=== PATIENT | female | born 1970 | race Caucasian/White ===

== ENCOUNTER 2018-11-03 17:15 | Emergency (ER) | payer OTHER, MEDICAID ==
[~2018-11-03] VITALS: Ht 165.1 cm; Wt 90.7 kg
[~2018-11-03 17:15] MED LIST: ABILIFY 5 MG TAB5 MG PO; ACETAMINOPHEN-1 EAC1 PO; ALBUTEROL2.5 MG/0.5 INH; ALBUTEROL2.5 MG/31 INH; ALL DAY ALLERGY10 M3 PO; AMITIZA 24 MCG24 MC1 PO; ASCOMP WITH CO1 EACH PO; AZITHROMYCIN 2250 MG PO; BACTRIM DS TAB1 EACH PO; BACTROBAN CREAM30 G1 TOP; BENADRYL25 MG PO; CALCIUM 600 +1 EAC1 PO; CIPROFLOXIN HC2.5 M1 OPHTHALMIC; CLEOCIN HCL150 MG PO; CLONAZEPAM 1 MG1 M1 PO; CPAP MISCELL; CYMBALTA30 MG PO; DEXILANT30 MG PO; FIORINAL 50-321 EACH PO; FISH OIL 1,001000 M2 PO; GLIPIZIDE 10 MG10 MG PO; GLIPIZIDE XL5 MG PO; HYDROCODONE-AP1 EAC6 PO; IBUPROFEN 600600 M1 PO; LAMISIL125 ML TP; LIDODERM 5%1 PATC1 TRANSDERM; LIPITOR10 MG PO; LOTREL 5-20 MG1 EACH PO; LUNESTA3 MG PO; MACROBID 100 M100 M1 PO; MEDROLDOSEPACK PO; METFORMIN HCL500 MG PO; MIGRANOW KIT50 MG MC; MIRALAX17 GM PO; MUCINEX TA600 MG/TA2 PO; NASONEX17 GM NASAL; NEURONTIN 300300 M1 PO; NEURONTIN 400400 M1 PO; NEURONTIN600 MG PO; NORCO 5-325 TA1 EACH PO; NORVASC10 MG PO; ONDANSETRON HCL4 M2 PO; PATADAY2.5 ML OP; PERCOCET 10-321 EAC1 PO; PERCOCET 10-321 EACH PO; PRINIVIL5 MG; PROAIR HFA8.5 GM; PROAIR HFA8.5 GM INH; REQUIP XL8 MG PO; REQUIP3 MG PO; ROBAXIN 750 MG750 M1 PO; ROBAXIN500 MG PO; SINGULAIR 10 MG10 M1 PO; SYMBICORT160 MCG/4. INH; TOBRAMYCIN SULFA5 M1 OP; TRAMADOL 50 MG50 MG PO; TRIAMCINOLONE A80 G2 TOP; VENTOLIN HFA 1818 GM INH; VICODIN 5-5001 EACH PO; ZANAFLEX4 M1 PO; ZYRTEC10 M5 PO
[2018-11-03] MEDS ORDERED: PREDNISONE 20 M20 MG PO (17:44)
[2018-11-03] MEDS ORDERED: TRIAMCINOLONE A80 G2 TOP (17:44)
[2018-11-03] MEDS ORDERED: HYDROXYZINE HCL25 M1 PO (17:44)
[2018-11-03 18:02] VITALS: BP 129/85
== END 2018-11-03 18:02 | disposition home or self-care (01) ==
LOC: M.ERS 17:15
DX: L23.7 Allergic contact dermatitis due to plants, except food (principal); I10 Essential (primary) hypertension; M79.7 Fibromyalgia; E11.40 Type 2 diabetes mellitus with diabetic neuropathy, unspecified; K21.9 Gastro-esophageal reflux disease without esophagitis; G43.909 Migraine, unspecified, not intractable, without status migrainosus; G47.00 Insomnia, unspecified; G25.81 Restless legs syndrome; E66.9 Obesity, unspecified; Z98.890 Other specified postprocedural states; Z90.49 Acquired absence of other specified parts of digestive tract; Z90.710 Acquired absence of both cervix and uterus; Z88.0 Allergy status to penicillin; Z90.89 Acquired absence of other organs; Z68.33 Body mass index [BMI] 33.0-33.9, adult

== ENCOUNTER 2020-01-01 14:25 | Emergency (ER) | payer OTHER, MEDICAID ==
[~2020-01-01] VITALS: Ht 162.6 cm; Wt 104.3 kg
[~2020-01-01 14:25] MED LIST changes: +HYDROXYZINE HCL25 M1 PO; +PREDNISONE 20 M20 MG PO
[2020-01-01] MEDS ORDERED: VOLTAREN GEL 1100 G1 TOP (14:30)
[2020-01-01 14:54] LABS: ABSOLUTE BASOPHILS 0.1 thou/uL (0.0-0.2); ABSOLUTE EOSINOPHILS 0.1 thou/uL (0.0-0.7); ABSOLUTE LYMPHOCYTES 2.3 thou/uL (0.8-5.3); ABSOLUTE MONOCYTES 0.6 thou/uL (0.0-1.2); ABSOLUTE NEUTROPHILS 4.5 thou/uL (1.6-8.1); BASOPHILS 1.2 %; EOSINOPHILS 1.7 %; LYMPHOCYTES 29.4 %; MCH 29.5 pg (26.0-34.0); MCHC 34.1 g/dL (28.0-37.0); MCV 86.5 fL (80.0-100.0); MONOCYTES 8.5 %; MPV 7.3 fl. (7.2-11.1); NUCLEATED RBCS 0 /100WBC; PLATELET COUNT* 257 thou/uL (150-400); POLYS 59.2 %; RDW-CV 13.2 % (10.5-14.5); WBC 7.7 thou/uL (4.0-11.0)
[2020-01-01 15:02] LABS: CREATININE 0.9 mg/dL (0.6-1.3); POTASSIUM 3.5 mmol/L (3.5-5.1)
[2020-01-01 15:03] LABS: APTT 27.3 Seconds (25.0-31.3); INR 0.9; PROTIME 9.5 Seconds (9.20-11.50)
[2020-01-01 15:07] LABS: TOTAL BILIRUBIN 0.2 mg/dL (<0.1-1.0); TOTAL PROTEIN 6.5 g/dL (6.4-8.2)
[2020-01-01 15:37] VITALS: BP 143/95
--- NOTE | 2020-01-03 14:33 | EKG ---
[place] [address] ELECTROCARDIOGRAM REPORT Name: HARRISKELLIE R Room: [facility]#: [id number] Admission: 01/01/20 Attend Phys: Discharge: 01/01/20 Date of : 68 Date of Service: 01/01/20 1437 Report #: [id number] THIS REPORT FOR: //name// [facility] ED Test Date: 2020-01-01 Test Time: 14:37:13 Pat Name: KELLIE IGLESIAS Department: Room: Gender: Wood Miller: : 1970 Requested By: Cristhian Rajput Order Number: [id number] MD: Aaron Tenorio Measurements Intervals [place] Rate: 88 P: 53 [place]: 192 QRS: 9 QRSD: 114 T: 15 QT: 369 QTc: 447 Interpretive Statements Sinus rhythm Probable left ventricular hypertrophy Compared to ECG 03/30/2017 11:10:47 No significant changes Electronically Signed On 01-03-2020 14:32:49 CDT by Aaron Tenorio [email or web address] <ELECTRONICALLY SIGNED> By: Aaron Tenorio MD, [facility] 01/03/20 1432 1437 143 Aaron Tenorio MD, [facility] /EPI
== END 2020-01-01 15:37 | disposition home or self-care (01) ==
LOC: M.ERS 14:25
PROVIDERS: Family Medicine
DX: E86.0 Dehydration (principal); R55 Syncope and collapse; I10 Essential (primary) hypertension; E11.9 Type 2 diabetes mellitus without complications; E66.9 Obesity, unspecified; K21.9 Gastro-esophageal reflux disease without esophagitis; G43.909 Migraine, unspecified, not intractable, without status migrainosus; G25.81 Restless legs syndrome; M79.7 Fibromyalgia; Z68.39 Body mass index [BMI] 39.0-39.9, adult; Z98.890 Other specified postprocedural states; Z90.49 Acquired absence of other specified parts of digestive tract; Z90.710 Acquired absence of both cervix and uterus; Z88.0 Allergy status to penicillin

== ENCOUNTER 2020-07-31 01:13 | Emergency (ER) | payer OTHER, MEDICAID ==
[~2020-07-31] VITALS: Ht 162.6 cm; Wt 108.9 kg
[~2020-07-31 01:13] MED LIST changes: +VOLTAREN GEL 1100 G1 TOP
[2020-07-31] MEDS ORDERED: HYDROCODON-ACE1 EAC8 PO (02:43)
[2020-07-31] MEDS ORDERED: KEFLEX500 M1 PO (02:43)
[2020-07-31 03:46] VITALS: BP 130/94
== END 2020-07-31 03:46 | disposition home or self-care (01) ==
LOC: M.ERS 01:13
DX: S92.511A Displaced fracture of proximal phalanx of right lesser toe(s), initial encounter for closed fracture (principal); M54.5 Low back pain; I10 Essential (primary) hypertension; M79.7 Fibromyalgia; E11.40 Type 2 diabetes mellitus with diabetic neuropathy, unspecified; G43.909 Migraine, unspecified, not intractable, without status migrainosus; K21.9 Gastro-esophageal reflux disease without esophagitis; E66.9 Obesity, unspecified; Z98.890 Other specified postprocedural states; Z90.89 Acquired absence of other organs; Z68.41 Body mass index [BMI] 40.0-44.9, adult; Z90.711 Acquired absence of uterus with remaining cervical stump; Z85.43 Personal history of malignant neoplasm of ovary; Z79.899 Other long term (current) drug therapy; Z88.0 Allergy status to penicillin; Z91.048 Other nonmedicinal substance allergy status; W01.0XXA Fall on same level from slipping, tripping and stumbling without subsequent striking against object, initial encounter; Y93.51 Activity, roller skating (inline) and skateboarding; Y92.89 Other specified places as the place of occurrence of the external cause; Y99.8 Other external cause status

== ENCOUNTER 2020-08-11 14:13 | Emergency (ER) | payer OTHER, MEDICAID ==
[~2020-08-11] VITALS: Ht 162.6 cm; Wt 108.9 kg
[~2020-08-11 14:13] MED LIST changes: +HYDROCODON-ACE1 EAC8 PO; +KEFLEX500 M1 PO
[2020-08-11 15:25] VITALS: BP 169/101
== END 2020-08-11 15:26 | disposition home or self-care (01) ==
LOC: M.ERS 14:13
DX: S91.114D Laceration without foreign body of right lesser toe(s) without damage to nail, subsequent encounter (principal); M25.571 Pain in right ankle and joints of right foot; I10 Essential (primary) hypertension; M79.7 Fibromyalgia; E11.40 Type 2 diabetes mellitus with diabetic neuropathy, unspecified; G43.909 Migraine, unspecified, not intractable, without status migrainosus; K21.9 Gastro-esophageal reflux disease without esophagitis; G25.81 Restless legs syndrome; E66.9 Obesity, unspecified; Z88.0 Allergy status to penicillin; Z90.710 Acquired absence of both cervix and uterus; Z90.89 Acquired absence of other organs; Z98.890 Other specified postprocedural states; Z68.41 Body mass index [BMI] 40.0-44.9, adult; X58.XXXD Exposure to other specified factors, subsequent encounter

== ENCOUNTER 2020-11-16 15:11 | Emergency (ER) | payer MEDICAID ==
[~2020-11-16] VITALS: Ht 162.6 cm; Wt 104.8 kg
[2020-11-16 15:52] LABS: URINE BILIRUBIN NEGATIVE (Negative); URINE BLOOD 1+ (Negative); URINE COLOR YELLOW; URINE GLUCOSE-RANDOM NEGATIVE (Negative); URINE KETONES NEGATIVE (Negative); URINE LEUKOCYTES-REFLEX NEGATIVE (Negative); URINE NITRITE-REFLEX NEGATIVE (Negative); URINE PROTEIN NEGATIVE (Negative); URINE UROBILINOGEN 0.2 E.U./dl (0.2-1.0)
[2020-11-16 15:53] LABS: URINE CLARITY HAZY
[2020-11-16 16:20] LABS: SQUAMOUS 4-10 Moderate /LPF (0-3)
[2020-11-16 16:21] LABS: BACTERIA-REFLEX None Seen /HPF (None Seen); CASTS None Seen /LPF (None Seen); CRYSTALS None Seen /LPF (None Seen); URINE RBC 0-2 Rare /HPF (0-2); URINE WBC-REFLEX None Seen /HPF (0-5)
[2020-11-16] MEDS ORDERED: NORCO5 PO ×2 (17:12→17:27)
[2020-11-16] MEDS ORDERED: PHENAZOPYRIDIN200 M2 PO (17:13)
[2020-11-16 17:40] VITALS: BP 141/65
== END 2020-11-16 17:41 | disposition home or self-care (01) ==
LOC: M.ERS 15:11
PROVIDERS: Physician Assistant
DX: M79.7 Fibromyalgia (principal); R30.0 Dysuria; I10 Essential (primary) hypertension; E11.40 Type 2 diabetes mellitus with diabetic neuropathy, unspecified; G43.909 Migraine, unspecified, not intractable, without status migrainosus; K21.9 Gastro-esophageal reflux disease without esophagitis; G25.81 Restless legs syndrome; E66.9 Obesity, unspecified; Z68.39 Body mass index [BMI] 39.0-39.9, adult; Z98.890 Other specified postprocedural states; Z90.89 Acquired absence of other organs; Z90.710 Acquired absence of both cervix and uterus; Z85.43 Personal history of malignant neoplasm of ovary; Z88.0 Allergy status to penicillin; Z85.07 Personal history of malignant neoplasm of pancreas